=== PATIENT | female | born 1995 | race Caucasian/White ===

== ENCOUNTER → 2018-07-20 | Emergency (ER) | payer OTHER ==
[~2018-07-20] VITALS: Ht 154.9 cm; Wt 61.2 kg
== END | disposition home or self-care (01) ==
LOC: ER 11:06
DX: S91.312A Laceration without foreign body, left foot, initial encounter (principal); W45.8XXA Other foreign body or object entering through skin, initial encounter; Y93.89 Activity, other specified; Y92.214 College as the place of occurrence of the external cause; Y99.8 Other external cause status

== ENCOUNTER 2018-10-04 14:04 | Emergency (ER) | payer OTHER ==
[~2018-10-04] VITALS: Ht 154.9 cm; Wt 61.2 kg
[2018-10-04] MEDS ORDERED: BUDESONIDE0.5 MG/2 M IH (18:33)
[2018-10-04] MEDS ORDERED: LEVALBUTER1.25 MG/3 IH (18:33)
[2018-10-04] MEDS ORDERED: IPRATROPIU0.2 MG/1 M IH (18:33)
[2018-10-04] MEDS ORDERED: MUCINEX DM ER1 EAC1 PO (18:33)
[2018-10-04] MEDS ORDERED: MEDROLPACK PO (18:33)
[2018-10-04] MEDS ORDERED: TESSALON PERLE100 M1 PO (18:33)
== END 2018-10-04 18:43 | disposition home or self-care (01) ==
LOC: ER 14:04
DX: J45.998 Other asthma (principal)

== ENCOUNTER 2019-04-04 12:00 | Emergency (ER) | payer OTHER ==
[~2019-04-04] VITALS: Ht 154.9 cm; Wt 61.2 kg
[~2019-04-04 12:00] MED LIST: BUDESONIDE0.5 MG/2 M IH; IPRATROPIU0.2 MG/1 M IH; LEVALBUTER1.25 MG/3 IH; MEDROLPACK PO; MUCINEX DM ER1 EAC1 PO; TESSALON PERLE100 M1 PO
[2019-04-04] MEDS ORDERED: TUSSI PRES-B L480 ML PO (16:13)
[2019-04-04] MEDS ORDERED: ZITHROMAX500 MG PO (16:13)
== END 2019-04-04 16:27 | disposition home or self-care (01) ==
LOC: ER 12:00
DX: B34.9 Viral infection, unspecified (principal); B96.0 Mycoplasma pneumoniae [M. pneumoniae] as the cause of diseases classified elsewhere